=== PATIENT | male | born 1945 | race Caucasian/White ===

== ENCOUNTER → 2018-02-06 | Outpatient (CLI) | payer BC, MEDICARE ==
--- NOTE | 2018-02-06 13:29 | CT ---
"EXAMINATION TYPE: CT urogram wo/w con DATE OF EXAM: 02/06/2018 COMPARISON: None INDICATION: gross hematuria DLP: 2185 mGycm, Automated exposure control for dose reduction was used. CONTRAST: 80 mL of Isovue 300. Study performed without Oral Contrast TECHNIQUE: Axial images were obtained from above the diaphragm to the pubic rami in the axial plane a t 5 mm thick sections. Reconstructed images are reviewed on the computer in the coronal plane. FINDINGS: Limited CT sections are obtained the lung bases. The lung bases are clear. CT ABDOMEN: Liver: Portions of the liver visualized is normal. Spleen: Portion of the spleen visualized is normal. Pancreas: Normal Adrenal glands: The adrenal glands are normal. Gallbladder: Normal Kidneys: No masses are evident. No hydronephrosis is present. There is a 2.6 cm cyst measuring 0 Ho unsfield units at inferior pole left kidney. There is a cyst at the inferior pole right kidney measur ing 1.5 cm in 1 Hounsfield units. A 1.3 cm cyst measuring 0 Hounsfield units superior cortex right ki dney. There is a nonobstructing inferior pole left renal stone measuring 0.4 cm. Punctate mid left re nal stone without obstruction measuring 2 mm is present. The mid to superior pole left renal stone me asuring 0.2 cm right renal artery calcifications present. Delayed images were obtained through the kidneys better delineate the renal cyst. Delayed images were obtained through the pelvis. Ureters follow a normal caliber course and contour o n sequential images to the urinary bladder. Aorta: Vascular calcification is within the aorta. Inferior vena cava: Normal. CT PELVIS: Urinary bladder has multiple hyperdense filling defects and delayed images the largest are a appears to be within the inferior right pelvis urinary bladder. Additional masses in the left anter ior lateral urinary bladder. Right hip prosthesis causes beam hardening artifact in some limitation on the lower pelvis. Free flui d is not clearly identified. Fecal debris diverticulosis within the sigmoid colon is present. Three-D reconstructed images performed separately on the [employer]a computer by the technologist are pres ented. Urinary bladder is nondiagnostic on Three-D imaging. IMPRESSIONS: 1. Nonobstructing left renal stones. 2. Simple renal cysts bilaterally. 3. Urinary bladder masses, left. Additional workup is recommended. A large filling defect is in the i nferior left urinary bladder without ureteral obstruction at this time. A Yellow level critical message alert has been initiated for Bishnu Mandel MD via the bulletn. | Critical Results System on 02/06/2018 1:25 PM. This message alert has been sent to Jeffery Isaacs via the preferences provided by the clinician for the receipt of Radiology Critical Findings. Sj STATS ."
== END | disposition home or self-care (01) ==
LOC: RADCTMAIN 07:36
PROVIDERS: ATTEND Urology
DX: N20.0 Calculus of kidney (principal); N28.1 Cyst of kidney, acquired; N32.9 Bladder disorder, unspecified
CPT/HCPCS: 82565; 84520; 74178; 36415; 74400; Q9967